=== PATIENT | male | born 1950 | race Caucasian/White ===

== ENCOUNTER 2020-10-05 19:53 | Inpatient (IN) | payer MEDICARE, SELFPAY ==
--- NOTE | 2020-10-05 20:04 | ED_ITS ---
HPI - Altered Mental Status General Chief Complaint: Altered Mental Status Stated Complaint: FOUND ON FLOOR,CONFUSED,UNK IF FALL Time Seen by Provider: 10/05/20 20:04 Source: patient and EMS Mode of arrival: EMS Limitations: no limitations History of Present Illness HPI narrative: Patient alcoholic drinks every day last drink was yesterday brought by ambulance, neighbor has heard him falling at 05:30 in the morning when he entered to his house tonight found him on the floor unable to get up covered in feces and confused. Patient is shaky trembling speaking softly in unkept condition not sure whether he hit his head to the ground Related Data Allergies Allergy/AdvReac Type Severity Reaction Status Date / Time penicillin V Allergy Unknown Verified 11/28/14 00:00 Penicillins [PENICILLINS] Allergy Unknown UNKOWN Unverified 07/09/20 15:15 Review of Systems Review of Systems: REVIEW OF SYSTEMS: Pertinent positives and negatives are stated above in the history. GEN: no fevers, chills, fatigue++ HEENT: no nasal congestion, sore throat, ear pain NEURO: no headache, dizziness, focal weakness PULM: no cough, shortness of breath CV: no chest pain, palpitations, LE edema ABD: no abdominal pain, nausea, vomiting, diarrhea : no dysuria, urgency, frequency SKIN: Bruising+ Patient confused limited ROS Neurologic: Reports confusion Psychiatric: Psychiatric: Reports confusion PMFSH Past Medical History Medical History Alcohol abuse Social History Social History Advance Directives: No Advance Directives Information Provided: Yes Physical Exam Vital Signs: Vital Signs: Last Vital Signs Temp 99.7 F 10/05/20 20:06 Pulse 98 10/05/20 23:18 Resp 20 10/05/20 23:18 BP 130/70 10/05/20 23:18 Pulse Ox 98 10/05/20 21:12 Body Mass Index 22.7 Const: General: alert, anxious, confusion, ill appearing, lethargic and poor hygiene Nutritional Appearance: malnourished Orientation/consciousness: oriented to person, oriented to place, confusion and lethargic Limitations: altered mental status HENMT: Head: Yes normal to inspection Ears: hearing grossly normal bilaterally General nose exam: Normal external nose present Mouth: Abnormal oral and palatal mucosa present (Dry oral mucosa) Eyes: General: appearance normal, both eyes and all related structures Eyelids: Yes eyelids normal Conjunctivae: conjunctivae normal Sclerae: sclerae normal Neck: Neck: Yes normal visual inspection, Yes full ROM, Yes no meningeal signs, Yes trachea midline, Yes lymphadenopathy, No midline deformity and Yes no JVD Chest: Other: Different age bruising on the back of the chest and extremities Chest palpation & inspection: normal palpation of entire chest wall Resp: Effort & Inspection: normal respiratory effort Auscultation: no crackles, no rales and no rhonchi Cardio: Jugular venous distension: no JVD Rate: regular rate Rhythm: regular rhythm Heart sounds: S1 normal heart sound present and S2 normal heart sound present GI: Inspection: Yes normal to inspection Palpation (GI): Soft to palpation and nontender : General: Yes no CVA tenderness Back/Spine/Pelvis: Back: no CVA tenderness Thoracic/Lumbar Spine: thoracic and lumbar spine normal to inspection Skin: Other: Dry skin bruising and abrasions of different ages all over Neuro: General: oriented to person, oriented to place, moves all extremities, no meningeal signs, no focal motor deficits, CN's II-XI intact bilaterally and confusion Extrem: General: Yes normal to inspection and Yes full ROM MDM - Altered Mental Status MDM Narrative Medical decision making narrative: Patient with alcohol withdrawal with recent fall workup showed that patient has UTI also not septic also slight in rhabdomyolysis, Patient received IV fluids and IV Ativan will admit patient for IV hydration and IV antibiotics and start on phenobarb protocol for alcohol withdrawal also patient's magnesium was 1.2 received magnesium IV patient white counts are 7.3 is normal with thrombocytopenia 74,000 with lactic acidosis of 4.7 patient is not from sepsis from dehydration and rhabdomyolysis and alcohol use patient abdomen is soft no signs of any acute findings. Patient's urine is slightly infected with nitrite positive and WBC clumps will give IV antibiotics Rocephin patient received more than 30 cc/kilogram IV fluids vitals are stable started on Ativan for withdrawal and place him on phenobarb protocol Medical Records Attestation: I reviewed the patient's medical records. Lab Data Attestation: I reviewed the patient's lab results. Result diagrams: 10/05/20 21:00 10/05/20 21:00 Labs: Lab Results 10/05/20 10/05/20 10/05/20 Range/Units 20:23 21:00 21:00 WBC 7.3 (4.8-10.8) X10*3/uL RBC 3.99 L (4.60-5.80) X10*6/uL Hgb 14.2 (14.0-18.0) g/dl Hct 41.9 L (42-52) % MCV 105.0 H (80-98) fL MCH 35.6 H (27.0-33.0) pg MCHC 33.9 (31.0-36.0) g/dl RDW 14.5 (11.0-16.0) % Plt Count 74 L (160-400) X10*3/uL MPV 10.8 (9.4-12.4) fL Immature Gran % (Auto) 0.4 (0.0-0.4) % Neut % (Auto) 74.8 H (45-73) % Lymph % (Auto) 16.4 L (20-40) % Dale % (Auto) 8.3 (2-11) % Eos % (Auto) 0.0 (0-4) % Baso % (Auto) 0.1 (0-2) % Lymph # (Auto) 1.2 (1.2-4.9) X10*3/uL Dale # (Auto) 0.6 (0.1-1.2) X10*3/uL Eos # (Auto) 0.0 (0.0-0.4) X10*3/uL Baso # (Auto) 0.0 (0.0-0.2) X10*3/uL Abs Immat Gran (auto) 0.03 (0.00-0.03) X10*3/uL Absolute Neuts (auto) 5.4 (2.0-8.3) X10*3/uL Absolute Nucleated RBC 0.000 (0.0-0.012) X10*3/uL Nucleated RBC % (auto) 0.0 (0.0-0.2) /100WBC PT (10.8-13.0) SEC INR (0.9-1.1) APTT (24.1-38.0) SEC Sodium (135-145) mmol/L Potassium (3.3-5.1) mmol/l Chloride (96-108) mmol/L Carbon Dioxide (22-29) mmol/L Anion Gap (12-20) BUN (9-16) mg/dL Creatinine (0.5-1.4) mg/dL Estim Creat Clear Calc Estimated GFR POC Glucose 123 H (60-115) mg/dL Random Glucose (60-115) mg/dL Lactic Acid (0.5-2.0) mmol/L Calcium (8.4-10.2) mg/dL Magnesium (1.6-2.6) mg/dL Total Bilirubin (0.0-1.0) mg/dL Direct Bilirubin (0.0-0.5) mg/dL AST (5-37) U/L ALT (0-40) U/L Alkaline Phosphatase (39-117) U/L Total Creatine Kinase 1251 H (38-174) U/L Troponin I High Sens (<3.5-35.0) ng/L Total Protein (6.5-8.0) g/dL Albumin (3.5-5.0) g/dL Lipase (8-78) U/L Urine Color Urine Appearance Urine pH (5.0-8.0) Ur Specific [place] (1.005-1.025) Urine Protein (NEG-TRACE) MG/DL Urine Glucose (UA) (NEG) MG/DL Urine Ketones (NEG) MG/DL Urine Blood (NEG) Urine Nitrite (NEG) Ur Leukocyte Esterase (NEG) Urine RBC (0) /HPF Urine WBC (0-4) /HPF Urine WBC Clumps Ur Squamous Epith Cells /LPF Urine Bacteria /LPF Hyaline Casts /LPF Urine Mucus /LPF Ethyl Alcohol mg/dL Coronavirus (PCR) (Negative) Influenza Type A (PCR) (Negative) Influenza Type B (PCR) (Negative) RSV RNA Qual (PCR) (Negative) 10/05/20 10/05/20 10/05/20 Range/Units 21:00 21:00 21:00 WBC (4.8-10.8) X10*3/uL RBC (4.60-5.80) X10*6/uL Hgb (14.0-18.0) g/dl Hct (42-52) % MCV (80-98) fL MCH (27.0-33.0) pg MCHC (31.0-36.0) g/dl RDW (11.0-16.0) % Plt Count (160-400) X10*3/uL MPV (9.4-12.4) fL Immature Gran % (Auto) (0.0-0.4) % Neut % (Auto) (45-73) % Lymph % (Auto) (20-40) % Dale % (Auto) (2-11) % Eos % (Auto) (0-4) % Baso % (Auto) (0-2) % Lymph # (Auto) (1.2-4.9) X10*3/uL Dale # (Auto) (0.1-1.2) X10*3/uL Eos # (Auto) (0.0-0.4) X10*3/uL Baso # (Auto) (0.0-0.2) X10*3/uL Abs Immat Gran (auto) (0.00-0.03) X10*3/uL Absolute Neuts (auto) (2.0-8.3) X10*3/uL Absolute Nucleated RBC (0.0-0.012) X10*3/uL Nucleated RBC % (auto) (0.0-0.2) /100WBC PT 13.0 (10.8-13.0) SEC INR 1.1 (0.9-1.1) APTT 29.6 (24.1-38.0) SEC Sodium 148 H (135-145) mmol/L Potassium 3.5 (3.3-5.1) mmol/l Chloride 107 (96-108) mmol/L Carbon Dioxide 23 (22-29) mmol/L Anion Gap 22 H (12-20) BUN 5 L (9-16) mg/dL Creatinine 0.83 (0.5-1.4) mg/dL Estim Creat Clear Calc 85.4 Estimated GFR > 60 POC Glucose (60-115) mg/dL Random Glucose 127 H (60-115) mg/dL Lactic Acid (0.5-2.0) mmol/L Calcium 8.0 L (8.4-10.2) mg/dL Magnesium (1.6-2.6) mg/dL Total Bilirubin 2.9 H (0.0-1.0) mg/dL Direct Bilirubin 1.6 H (0.0-0.5) mg/dL AST 96 H (5-37) U/L ALT 30 (0-40) U/L Alkaline Phosphatase 113 (39-117) U/L Total Creatine Kinase (38-174) U/L Troponin I High Sens 10.8 (<3.5-35.0) ng/L Total Protein 6.5 (6.5-8.0) g/dL Albumin 3.6 (3.5-5.0) g/dL Lipase (8-78) U/L Urine Color Urine Appearance Urine pH (5.0-8.0) Ur Specific [place] (1.005-1.025) Urine Protein (NEG-TRACE) MG/DL Urine Glucose (UA) (NEG) MG/DL Urine Ketones (NEG) MG/DL Urine Blood (NEG) Urine Nitrite (NEG) Ur Leukocyte Esterase (NEG) Urine RBC (0) /HPF Urine WBC (0-4) /HPF Urine WBC Clumps Ur Squamous Epith Cells /LPF Urine Bacteria /LPF Hyaline Casts /LPF Urine Mucus /LPF Ethyl Alcohol mg/dL Coronavirus (PCR) (Negative) Influenza Type A (PCR) (Negative) Influenza Type B (PCR) (Negative) RSV RNA Qual (PCR) (Negative) 10/05/20 10/05/20 10/05/20 Range/Units 21:00 21:00 21:00 WBC (4.8-10.8) X10*3/uL RBC (4.60-5.80) X10*6/uL Hgb (14.0-18.0) g/dl Hct (42-52) % MCV (80-98) fL MCH (27.0-33.0) pg MCHC (31.0-36.0) g/dl RDW (11.0-16.0) % Plt Count (160-400) X10*3/uL MPV (9.4-12.4) fL Immature Gran % (Auto) (0.0-0.4) % Neut % (Auto) (45-73) % Lymph % (Auto) (20-40) % Dale % (Auto) (2-11) % Eos % (Auto) (0-4) % Baso % (Auto) (0-2) % Lymph # (Auto) (1.2-4.9) X10*3/uL Dale # (Auto) (0.1-1.2) X10*3/uL Eos # (Auto) (0.0-0.4) X10*3/uL Baso # (Auto) (0.0-0.2) X10*3/uL Abs Immat Gran (auto) (0.00-0.03) X10*3/uL Absolute Neuts (auto) (2.0-8.3) X10*3/uL Absolute Nucleated RBC (0.0-0.012) X10*3/uL Nucleated RBC % (auto) (0.0-0.2) /100WBC PT (10.8-13.0) SEC INR (0.9-1.1) APTT (24.1-38.0) SEC Sodium (135-145) mmol/L Potassium (3.3-5.1) mmol/l Chloride (96-108) mmol/L Carbon Dioxide (22-29) mmol/L Anion Gap (12-20) BUN (9-16) mg/dL Creatinine (0.5-1.4) mg/dL Estim Creat Clear Calc Estimated GFR POC Glucose (60-115) mg/dL Random Glucose (60-115) mg/dL Lactic Acid (0.5-2.0) mmol/L Calcium (8.4-10.2) mg/dL Magnesium (1.6-2.6) mg/dL Total Bilirubin (0.0-1.0) mg/dL Direct Bilirubin (0.0-0.5) mg/dL AST (5-37) U/L ALT (0-40) U/L Alkaline Phosphatase (39-117) U/L Total Creatine Kinase (38-174) U/L Troponin I High Sens (<3.5-35.0) ng/L Total Protein (6.5-8.0) g/dL Albumin (3.5-5.0) g/dL Lipase 7 L (8-78) U/L Urine Color Urine Appearance Urine pH (5.0-8.0) Ur Specific [place] (1.005-1.025) Urine Protein (NEG-TRACE) MG/DL Urine Glucose (UA) (NEG) MG/DL Urine Ketones (NEG) MG/DL Urine Blood (NEG) Urine Nitrite (NEG) Ur Leukocyte Esterase (NEG) Urine RBC (0) /HPF Urine WBC (0-4) /HPF Urine WBC Clumps Ur Squamous Epith Cells /LPF Urine Bacteria /LPF Hyaline Casts /LPF Urine Mucus /LPF Ethyl Alcohol < 10 mg/dL Coronavirus (PCR) NEGATIVE (Negative) Influenza Type A (PCR) NEGATIVE (Negative) Influenza Type B (PCR) NEGATIVE (Negative) RSV RNA Qual (PCR) NEGATIVE (Negative) 10/05/20 10/05/20 10/06/20 Range/Units 21:00 23:11 00:08 WBC (4.8-10.8) X10*3/uL RBC (4.60-5.80) X10*6/uL Hgb (14.0-18.0) g/dl Hct (42-52) % MCV (80-98) fL MCH (27.0-33.0) pg MCHC (31.0-36.0) g/dl RDW (11.0-16.0) % Plt Count (160-400) X10*3/uL MPV (9.4-12.4) fL Immature Gran % (Auto) (0.0-0.4) % Neut % (Auto) (45-73) % Lymph % (Auto) (20-40) % Dale % (Auto) (2-11) % Eos % (Auto) (0-4) % Baso % (Auto) (0-2) % Lymph # (Auto) (1.2-4.9) X10*3/uL Dale # (Auto) (0.1-1.2) X10*3/uL Eos # (Auto) (0.0-0.4) X10*3/uL Baso # (Auto) (0.0-0.2) X10*3/uL Abs Immat Gran (auto) (0.00-0.03) X10*3/uL Absolute Neuts (auto) (2.0-8.3) X10*3/uL Absolute Nucleated RBC (0.0-0.012) X10*3/uL Nucleated RBC % (auto) (0.0-0.2) /100WBC PT (10.8-13.0) SEC INR (0.9-1.1) APTT (24.1-38.0) SEC Sodium (135-145) mmol/L Potassium (3.3-5.1) mmol/l Chloride (96-108) mmol/L Carbon Dioxide (22-29) mmol/L Anion Gap (12-20) BUN (9-16) mg/dL Creatinine (0.5-1.4) mg/dL Estim Creat Clear Calc Estimated GFR POC Glucose (60-115) mg/dL Random Glucose (60-115) mg/dL Lactic Acid 4.7 H* (0.5-2.0) mmol/L Calcium (8.4-10.2) mg/dL Magnesium 1.2 L* (1.6-2.6) mg/dL Total Bilirubin (0.0-1.0) mg/dL Direct Bilirubin (0.0-0.5) mg/dL AST (5-37) U/L ALT (0-40) U/L Alkaline Phosphatase (39-117) U/L Total Creatine Kinase (38-174) U/L Troponin I High Sens (<3.5-35.0) ng/L Total Protein (6.5-8.0) g/dL Albumin (3.5-5.0) g/dL Lipase (8-78) U/L Urine Color DARK YELLOW Urine Appearance HAZY Urine pH 6.5 (5.0-8.0) Ur Specific [place] 1.025 (1.005-1.025) Urine Protein TRACE (NEG-TRACE) MG/DL Urine Glucose (UA) 100 H (NEG) MG/DL Urine Ketones 5 (NEG) MG/DL Urine Blood 3+ H (NEG) Urine Nitrite POS H (NEG) Ur Leukocyte Esterase NEG (NEG) Urine RBC 5-9 H (0) /HPF Urine WBC 10-14 H (0-4) /HPF Urine WBC Clumps NOTED Ur Squamous Epith Cells TRACE /LPF Urine Bacteria NONE /LPF Hyaline Casts 1-4 /LPF Urine Mucus 3+ /LPF Ethyl Alcohol mg/dL Coronavirus (PCR) (Negative) Influenza Type A (PCR) (Negative) Influenza Type B (PCR) (Negative) RSV RNA Qual (PCR) (Negative) ECG Data ECG #1: Interpretation: Normal sinus rhythm with heart rate [address]-T changes very poor baseline artifact. Intervals are normal impression no acute ischemia Critical Care Time Critical Care Time Critical Care Time: Yes Total Critical Care Time: 35 Attestation: Patient care Discharge Plan Discharge Clinical Impression: Alcohol withdrawal, Acute UTI, Status post fall, Rhabdomyolysis, Acidosis, lactic Patient Disposition: Admitted As Inpatient
--- NOTE | 2020-10-05 20:04 | CT_ITS ---
EXAM: Noncontrast CT scan of the head and cervical spine. INDICATION: Fall. Altered mental status. COMPARISON: None TECHNIQUE: Axial slices were obtained from skull base to vertex and displayed. This was followed by helical, multislice, multidetector axial images from the occiput to the upper thorax. Coronal and sagittal reformats of the cervical spine in addition to coronal reformats of the head were obtained at the technologist workstation. DLP: 1189 mGy-cm FINDINGS: HEAD: There is no evidence of acute intracranial hemorrhage or territorial infarction. No abnormal mass effect or midline shift is appreciated. Barry-white differentiation is well preserved. No extra-axial fluid collections. The ventricular system and cortical sulci are prominent, consistent with age-appropriate volume loss. There are areas of low density in the periventricular and subcortical white matter, most consistent with sequelae of microvascular ischemic change. The osseous structures and soft tissues are normal. There is mild calcifications of the cavernous internal carotid arteries. Prominent mucosal thickening of the right maxillary sinus. Other visualized paranasal sinuses are well aerated. SPINE: The cervical spine is visualized in its entirety. Alignment is within normal limits. Normal C1/C2 articulation. Vertebral body heights and disc spaces are relatively well-maintained diffusely. Visualized lung apices demonstrate mild biapical scarring and mild emphysematous changes. There is a 4 mm pulmonary nodule within the medial right lung apex. CT/CT cervical spine wo con IMPRESSION: 1. No acute intracranial pathology. 2. No fractures or dislocations of the cervical spine. 3. Mild sinus disease. 4. Mild scarring and emphysematous changes of the lung apices with a 4 mm pulmonary nodule within the medial right lung apex. This CT examination was performed using dose optimization techniques as appropriate, variously including the following: *Automated exposure control *Adjustment of mA and/or kV according to patient size (this includes techniques or standardized protocols for targeted exams where dose is matched to indication/reason for exam; i.e. extremities or head) *Use of iterative reconstruction technique
--- NOTE | 2020-10-05 20:05 | ECG_ITS ---
Test Reason : AMS Blood Pressure : / mmHG Vent. Rate : 077 BPM Atrial Rate : 078 BPM P-R Int : 000 ms QRS Dur : 074 ms QT Int : 436 ms P-R-T Axes : 000 062 073 degrees QTc Int : 493 ms Poor data quality Normal sinus rhythm Nonspecific ST-T changes. Prolonged QT Abnormal ECG When compared with ECG of 13-JUN-2020 15:57, QT has lengthened Referred By: Geovanni Toure Electronically Signed By:Gigi Barakat
--- NOTE | 2020-10-05 20:05 | XR_ITS ---
EXAMINATION: XR CHEST CLINICAL INFORMATION: Altered mental status COMPARISON: Chest x-ray 06/13/2020 TECHNIQUE: Frontal view of the chest was obtained. FINDINGS: Cardiac silhouette is normal in size. Lungs are well aerated. There is no lobar consolidation. No pleural effusion or pneumothorax. No gross osseous abnormality. XR/XR chest 1V IMPRESSION: Stable examination demonstrating no acute pulmonary pathology.
[2020-10-05 20:06] VITALS: BP 114/70; BP 128/92; PULSE 84; PULSE 92; RESP 16; TEMP 37.6; BMI 22.7
--- NOTE | 2020-10-05 20:19 | PC.NURSE ---
MD at bedside for primary eval. XRay at bedside.
--- NOTE | 2020-10-05 20:25 | PC.NURSE ---
engineering technology instructor at bedside for EKG and labs.
[2020-10-05 20:27] LABS: Glucose, Whole Blood 123 mg/dL (60-115)
--- NOTE | 2020-10-05 20:39 | PC.NURSE ---
Off to CT on hospital bed.
--- NOTE | 2020-10-05 20:49 | PC.NURSE ---
Pt returns from CT on hospital bed without incident. maintenance technician at bedside to obtain labs.
[2020-10-05] MEDS: 0.9 % Sodium Chloride 1,000 ML 999 ML IVCONT (21:04)
[2020-10-05 21:06] LABS: MANUAL DIFF FLAG NO
[2020-10-05 21:09] LABS: Basophils Percent Auto 0.1 % (0-2); Hematocrit 41.9 % (42-52); Hemoglobin 14.2 g/dl (14.0-18.0); Imm Gran Abs Auto 0.03 X10*3/uL (0.00-0.03); Imm Gran Pct Auto 0.4 % (0.0-0.4); Lymphocytes Absolute Auto 1.2 X10*3/uL (1.2-4.9); Lymphocytes Percent Auto 16.4 % (20-40); Mean Corpuscular HGB Conc 33.9 g/dl (31.0-36.0); Mean Corpuscular Hemoglobin 35.6 pg (27.0-33.0); Mean Platelet Volume 10.8 fL (9.4-12.4); Monocytes Absolute Auto 0.6 X10*3/uL (0.1-1.2); Monocytes Percent Auto 8.3 % (2-11); Neutrophils Absolute Auto 5.4 X10*3/uL (2.0-8.3); Neutrophils Percent Auto 74.8 % (45-73); Red Blood Count 3.99 X10*6/uL (4.60-5.80); Red Cell Distribution Width 14.5 % (11.0-16.0); White Blood Count 7.3 X10*3/uL (4.8-10.8)
[2020-10-05 21:12] VITALS: BP 123/84; PULSE 85; RESP 16; O2SAT 98
[2020-10-05 21:18] LABS: INTERNATIONAL NORM RATIO 1.1 (0.9-1.1)
[2020-10-05 21:21] LABS: Partial Thromboplastin Time 29.6 SEC (24.1-38.0)
[2020-10-05 21:25] LABS: Platelet Count 74 X10*3/uL (160-400)
[2020-10-05 21:34] LABS: Ethanol < 10 mg/dL
[2020-10-05 21:39] LABS: Lipase 7 U/L (8-78)
[2020-10-05 21:43] LABS: Troponin-I High Sensitivity 10.8 ng/L (<3.5-35.0)
[2020-10-05 21:44] LABS: Alanine Aminotransferase 30 U/L (0-40); Albumin Level 3.6 g/dL (3.5-5.0); Alkaline Phosphatase 113 U/L (39-117); Anion Gap 22 (12-20); Aspartate Amino Transferase 96 U/L (5-37); Bilirubin Direct 1.6 mg/dL (0.0-0.5); Bilirubin Total 2.9 mg/dL (0.0-1.0); Blood Urea Nitrogen 5 mg/dL (9-16); Carbon Dioxide 23 mmol/L (22-29); Chloride 107 mmol/L (96-108); Creatinine Clr Calc Pharmacy 85.4; Estimated Glomerular Filt Rate > 60; Glucose Random 127 mg/dL (60-115); Potassium 3.5 mmol/l (3.3-5.1); Sodium 148 mmol/L (135-145); Total Protein 6.5 g/dL (6.5-8.0)
[2020-10-05 21:50] LABS: Influenza A PCR NEGATIVE (Negative); Influenza B PCR NEGATIVE (Negative); Magnesium 1.2 mg/dL (1.6-2.6); Resp Syncy Virus RNA Qual PCR NEGATIVE (Negative); SARS COV2 PCR INHOUSE NEGATIVE (Negative)
[2020-10-05] MEDS: Magnesium Sulfate/H2O 2 GM/50 ML PIGGYBACK IV (22:01)
[2020-10-05] MEDS: LORazepam 2 MG/ML VIAL IVPUSH ×2 (22:01→23:23)
--- NOTE | 2020-10-05 22:06 | PC.NURSE ---
Pt medicated per EMAR, pharmacy contacted for banana bag.
--- NOTE | 2020-10-05 23:07 | PC.NURSE ---
Pt constantly expressing the need to urinate, minimal urine noted in urinal. Bladder scan showing <8 ml of urine in bladder/ Pt straight cathed to obtain urine sample. Urine sample sent to lab. Pt tremulous and confused, tolerating the straight cath poorly, pt uncooperative, grabbing at nurses. Continue to monitor.
[2020-10-05 23:17] LABS: Glucose Urine UA 100 MG/DL (NEG); Leukocyte Esterase Urine NEG (NEG); Nitrite Urine POS (NEG); PH 6.5 (5.0-8.0); Specific Gravity - Urine 1.025 (1.005-1.025); Urine Blood 3+ (NEG); Urine Ketones 5 MG/DL (NEG); Urine Protein TRACE MG/DL (NEG-TRACE)
[2020-10-05 23:18] VITALS: BP 130/70; PULSE 98; RESP 20
[2020-10-05 23:19] LABS: Appearance Urine HAZY; Color Urine DARK YELLOW
--- NOTE | 2020-10-05 23:23 | PC.NURSE ---
MD consulted for a second dose of Ativan, pt medicated with Ativan per DEC. Pt trying to pull out IV and get OOB, seizure pads applied to bed, pt repositioned into POC. VSS. Continue to monitor.
[2020-10-05 23:35] LABS: Mucus Urine 3+ /LPF; Squamous Epithelial Cell Urine TRACE /LPF; WBC Clumps Urine NOTED
[2020-10-06] MEDS: cefTRIAXone sodium 1 GM in 0.9 % Sodium Chloride 50 ML IV ×2 (00:24→05:49)
--- NOTE | 2020-10-06 00:27 | PC.NURSE ---
BCX and lactic obtained per MD order. Rocephin hung per DEC. Pt resting in bed at this time, remains agitated, unable to follow commands, sitter at bedside. VSS. Continue to monitor.
--- NOTE | 2020-10-06 00:33 | PC.NURSE ---
Hospitalist at bedside, plan for Phenobarb protocol.
--- NOTE | 2020-10-06 00:54 | PM.IMHP ---
History of Present Illness Date of Service: 10/06/20 Chief Complaint: Alcohol intoxication 70 y/o male with PMHx of alcohol abuse who presented from home s/p fall. Per history provided by EMS (as patient is unable to provide with any significant hx), Per patient's neighbor, he was found on the floor around 5:30 am this morning, confused and covered in feces. Patient usually drinks everyday, last alcoholic drink is knonw to be yesterday. No other hx is able to be obtained from patient at present given degree of confusion. On presentation to the ED patient is found to be hemodynaically stable, Hgb stable, no leukocytosis, Mg of 1.2, Na of 148, CPK of 1251, UA positive for UTI. CT head negative for any acute intracranial pathology. Patient was given Ativan 4 mg IV push and one dose of Rocephin per ED attending. Decision for admission given. Patient seen and examined at the bedside, laying down in bed in no acute distress, confused. ROS unable to be obtained at present. Physical exam positive for confusion. PMHX: Alcohol abuse PSx: none Toxic habits: Alcohol abuse, no hx of smoking or IVDA Review of Systems Review of Systems: Yes Other (unable to be obtained ) Neurologic: Reports confusion Psychiatric: Psychiatric: Reports confusion [facility] Medical History Alcohol abuse Functional capacity: independent ambulation Social History Advance Directives: No Advance Directives Information Provided: Yes Meds Allergies Allergy/AdvReac Type Severity Reaction Status Date / Time penicillin V Allergy Unknown Verified 11/28/14 00:00 Penicillins [PENICILLINS] Allergy Unknown UNKOWN Unverified 07/09/20 15:15 Physical Exam Vital Signs and Narrative: Vital Signs: Last Vital Signs Temp 99.7 F 10/05/20 20:06 Pulse 98 10/05/20 23:18 Resp 20 10/05/20 23:18 BP 130/70 10/05/20 23:18 Pulse Ox 98 10/05/20 21:12 Body Mass Index 22.7 Const: General: confusion Orientation/consciousness: confusion HENMT: Head: Yes normal to inspection Eyes: General: appearance normal, both eyes and all related structures Neck: Yes normal visual inspection Chest: Chest palpation & inspection: normal inspection of the chest Resp: Effort & Inspection: normal respiratory effort Cardio: Jugular venous distension: no JVD Rate: regular rate Rhythm: regular rhythm Heart sounds: S1 normal heart sound present and S2 normal heart sound present GI: Inspection: Yes normal to inspection Skin: General skin exam: no rashes or lesions noted Neuro: General: confusion Results Labs CBC and Chem 7: 10/05/20 21:00 10/05/20 21:00 Labs: Laboratory Results - last 24 hr 10/05/20 10/05/20 10/05/20 20:23 21:00 21:00 MCV 105.0 H MCH 35.6 H MCHC 33.9 RDW 14.5 Plt Count 74 L MPV 10.8 Immature Gran % (Auto) 0.4 Neut % (Auto) 74.8 H Lymph % (Auto) 16.4 L Mcleod % (Auto) 8.3 Eos % (Auto) 0.0 Baso % (Auto) 0.1 Lymph # (Auto) 1.2 Mcleod # (Auto) 0.6 Eos # (Auto) 0.0 Baso # (Auto) 0.0 Abs Immat Gran (auto) 0.03 Absolute Neuts (auto) 5.4 Absolute Nucleated RBC 0.000 Nucleated RBC % (auto) 0.0 PT INR APTT Anion Gap Estim Creat Clear Calc Estimated GFR POC Glucose 123 H Random Glucose Calcium Magnesium Total Bilirubin Direct Bilirubin AST ALT Alkaline Phosphatase Total Creatine Kinase 1251 H Troponin I High Sens Total Protein Albumin Lipase Urine Color Urine Appearance Urine pH Ur Specific Fowler Urine Protein Urine Glucose (UA) Urine Ketones Urine Blood Urine Nitrite Ur Leukocyte Esterase Urine RBC Urine WBC Urine WBC Clumps Ur Squamous Epith Cells Urine Bacteria Hyaline Casts Urine Mucus Ethyl Alcohol Coronavirus (PCR) Influenza Type A (PCR) Influenza Type B (PCR) RSV RNA Qual (PCR) 10/05/20 10/05/20 10/05/20 21:00 21:00 21:00 MCV MCH MCHC RDW Plt Count MPV Immature Gran % (Auto) Neut % (Auto) Lymph % (Auto) Mcleod % (Auto) Eos % (Auto) Baso % (Auto) Lymph # (Auto) Mcleod # (Auto) Eos # (Auto) Baso # (Auto) Abs Immat Gran (auto) Absolute Neuts (auto) Absolute Nucleated RBC Nucleated RBC % (auto) PT 13.0 INR 1.1 APTT 29.6 Anion Gap 22 H Estim Creat Clear Calc 85.4 Estimated GFR > 60 POC Glucose Random Glucose 127 H Calcium 8.0 L Magnesium Total Bilirubin 2.9 H Direct Bilirubin 1.6 H AST 96 H ALT 30 Alkaline Phosphatase 113 Total Creatine Kinase Troponin I High Sens 10.8 Total Protein 6.5 Albumin 3.6 Lipase Urine Color Urine Appearance Urine pH Ur Specific Fowler Urine Protein Urine Glucose (UA) Urine Ketones Urine Blood Urine Nitrite Ur Leukocyte Esterase Urine RBC Urine WBC Urine WBC Clumps Ur Squamous Epith Cells Urine Bacteria Hyaline Casts Urine Mucus Ethyl Alcohol Coronavirus (PCR) Influenza Type A (PCR) Influenza Type B (PCR) RSV RNA Qual (PCR) 10/05/20 10/05/20 10/05/20 21:00 21:00 21:00 MCV MCH MCHC RDW Plt Count MPV Immature Gran % (Auto) Neut % (Auto) Lymph % (Auto) Mcleod % (Auto) Eos % (Auto) Baso % (Auto) Lymph # (Auto) Mcleod # (Auto) Eos # (Auto) Baso # (Auto) Abs Immat Gran (auto) Absolute Neuts (auto) Absolute Nucleated RBC Nucleated RBC % (auto) PT INR APTT Anion Gap Estim Creat Clear Calc Estimated GFR POC Glucose Random Glucose Calcium Magnesium Total Bilirubin Direct Bilirubin AST ALT Alkaline Phosphatase Total Creatine Kinase Troponin I High Sens Total Protein Albumin Lipase 7 L Urine Color Urine Appearance Urine pH Ur Specific Fowler Urine Protein Urine Glucose (UA) Urine Ketones Urine Blood Urine Nitrite Ur Leukocyte Esterase Urine RBC Urine WBC Urine WBC Clumps Ur Squamous Epith Cells Urine Bacteria Hyaline Casts Urine Mucus Ethyl Alcohol < 10 Coronavirus (PCR) NEGATIVE Influenza Type A (PCR) NEGATIVE Influenza Type B (PCR) NEGATIVE RSV RNA Qual (PCR) NEGATIVE 10/05/20 10/05/20 21:00 23:11 MCV MCH MCHC RDW Plt Count MPV Immature Gran % (Auto) Neut % (Auto) Lymph % (Auto) Mcleod % (Auto) Eos % (Auto) Baso % (Auto) Lymph # (Auto) Mcleod # (Auto) Eos # (Auto) Baso # (Auto) Abs Immat Gran (auto) Absolute Neuts (auto) Absolute Nucleated RBC Nucleated RBC % (auto) PT INR APTT Anion Gap Estim Creat Clear Calc Estimated GFR POC Glucose Random Glucose Calcium Magnesium 1.2 L* Total Bilirubin Direct Bilirubin AST ALT Alkaline Phosphatase Total Creatine Kinase Troponin I High Sens Total Protein Albumin Lipase Urine Color DARK YELLOW Urine Appearance HAZY Urine pH 6.5 Ur Specific Fowler 1.025 Urine Protein TRACE Urine Glucose (UA) 100 H Urine Ketones 5 Urine Blood 3+ H Urine Nitrite POS H Ur Leukocyte Esterase NEG Urine RBC 5-9 H Urine WBC 10-14 H Urine WBC Clumps NOTED Ur Squamous Epith Cells TRACE Urine Bacteria NONE Hyaline Casts 1-4 Urine Mucus 3+ Ethyl Alcohol Coronavirus (PCR) Influenza Type A (PCR) Influenza Type B (PCR) RSV RNA Qual (PCR) Imaging Radiologist's Impressions: Impressions Cervical Spine CT 10/05/20 20:04 IMPRESSION: 1. No acute intracranial pathology. 2. No fractures or dislocations of the cervical spine. 3. Mild sinus disease. 4. Mild scarring and emphysematous changes of the lung apices with a 4 mm pulmonary nodule within the medial right lung apex. This CT examination was performed using dose optimization techniques as appropriate, variously including the following: *Automated exposure control *Adjustment of mA and/or kV according to patient size (this includes techniques or standardized protocols for targeted exams where dose is matched to indication/reason for exam; i.e. extremities or head) *Use of iterative reconstruction technique Chest X-Ray 10/05/20 20:05 IMPRESSION: Stable examination demonstrating no acute pulmonary pathology. Head CT 10/05/20 20:06 IMPRESSION: 1. No acute intracranial pathology. 2. No fractures or dislocations of the cervical spine. 3. Mild sinus disease. 4. Mild scarring and emphysematous changes of the lung apices with a 4 mm pulmonary nodule within the medial right lung apex. This CT examination was performed using dose optimization techniques as appropriate, variously including the following: *Automated exposure control *Adjustment of mA and/or kV according to patient size (this includes techniques or standardized protocols for targeted exams where dose is matched to indication/reason for exam; i.e. extremities or head) *Use of iterative reconstruction technique Assessment and Plan (1) Alcohol withdrawal: Qualifiers: Complication of substance-induced condition: uncomplicated Qualified Code(s): F10.230 - Alcohol dependence with withdrawal, uncomplicated Status: Acute Start with phenobarbital per protocol now S/p 2g of Mg per ED. Monitor electrolytes closely Fall precautions Continue with IV hydration follow up utox Detox to be discussed once patient is medically stable (2) Acute UTI: Status: Acute Continue with Rocephin for gram neg coverage Follow up Bcx and Ucx (3) Rhabdomyolysis: Qualifiers: Rhabdomyolysis type: non-traumatic Qualified Code(s): M62.82 - Rhabdomyolysis Status: Acute IV hydration as ordered (4) Hypernatremia: Status: Acute likely secondary to dehydration Continue with IV hydration and monitor electrolytes closely
--- NOTE | 2020-10-06 00:57 | PC.NURSE ---
This RN discussing repeat dose of Ativan with MD as pheno protocol as not gone into effect. Per MD plan for IV Ativan. Awaiting order. Pt remains uncooperative at this time, pulling his clothes and tele off. VSS. Continue to monitor.
[2020-10-06 01:03] LABS: Lactic Acid 4.7 mmol/L (0.5-2.0)
[2020-10-06] MEDS: LORazepam 2 MG/ML VIAL IVPUSH (01:03)
[2020-10-06] MEDS: Heparin Sodium,Porcine 5,000 UNIT/ML VIAL 5000 UNIT SUBCUT (01:04)
[2020-10-06] MEDS: 0.9 % Sodium Chloride 1,000 ML 999 ML IVCONT (01:35)
[2020-10-06] MEDS: PHENobarbitaL sodium 130 MG/ML VIAL 452 MG IM (01:36)
--- NOTE | 2020-10-06 01:47 | PC.NURSE ---
Pt agitated, removing IV to LAC. Access reestablished to LAC, IVF running. Pt medicated with initial dose of phenobarb. VSS. Preparing for transport to floor.
[2020-10-06 01:48] VITALS: BP 121/67; PULSE 95; RESP 16; TEMP 36.9
--- NOTE | 2020-10-06 01:49 | PC.NURSE ---
Unable to complete med rec due to AMS and DTs.
[2020-10-06 02:29] LABS: Reflex Lactate? Lactic Acid Added
[2020-10-06] MEDS: 0.9 % Sodium Chloride 1,000 ML 125 ML IVCONT ×2 (03:01→05:50)
[2020-10-06 03:13] LABS: ~Lactic Acid-LAB USE ONLY 2.2 mmol/L (0.5-2.0)
[2020-10-06 04:06] VITALS: BP 148/82
[2020-10-06] MEDS: PHENobarbitaL sodium 130 MG/ML VIAL 339 MG IM ×2 (04:38→07:11)
[2020-10-06] MEDS: diphenhydrAMINE HCL 50 MG/ML VIAL 25 MG IM (04:44)
[2020-10-06 04:51] LABS: Reflex Lactate? 2 Y
[2020-10-06 06:17] LABS: MANUAL DIFF FLAG NO
[2020-10-06 06:20] LABS: Basophils Percent Auto 0.2 % (0-2); Hematocrit 37.4 % (42-52); Hemoglobin 12.5 g/dl (14.0-18.0); Imm Gran Abs Auto 0.02 X10*3/uL (0.00-0.03); Imm Gran Pct Auto 0.4 % (0.0-0.4); Lymphocytes Absolute Auto 1.5 X10*3/uL (1.2-4.9); Lymphocytes Percent Auto 31.9 % (20-40); Mean Corpuscular HGB Conc 33.4 g/dl (31.0-36.0); Mean Corpuscular Hemoglobin 35.5 pg (27.0-33.0); Mean Corpuscular Volume 106.3 fL (80-98); Mean Platelet Volume 11.2 fL (9.4-12.4); Monocytes Absolute Auto 0.5 X10*3/uL (0.1-1.2); Monocytes Percent Auto 10.8 % (2-11); Neutrophils Absolute Auto 2.6 X10*3/uL (2.0-8.3); Neutrophils Percent Auto 56.7 % (45-73); Red Blood Count 3.52 X10*6/uL (4.60-5.80); Red Cell Distribution Width 14.6 % (11.0-16.0); White Blood Count 4.5 X10*3/uL (4.8-10.8)
[2020-10-06 06:24] LABS: ~Lactic Acid-LAB USE ONLY 2.2 mmol/L (0.5-2.0)
[2020-10-06 06:37] LABS: Platelet Count 42 X10*3/uL (160-400)
[2020-10-06 06:51] LABS: Anion Gap 14 (12-20); Blood Urea Nitrogen 5 mg/dL (9-16); Calcium 6.8 mg/dL (8.4-10.2); Carbon Dioxide 21 mmol/L (22-29); Chloride 113 mmol/L (96-108); Creatinine Clr Calc Pharmacy 102.7; Estimated Glomerular Filt Rate > 60; Glucose Random 93 mg/dL (60-115); Magnesium 1.6 mg/dL (1.6-2.6); Potassium 3.3 mmol/l (3.3-5.1); Sodium 145 mmol/L (135-145)
[2020-10-06 07:10] VITALS: BP 152/85; PULSE 83; RESP 20; TEMP 36.6; O2SAT 100
[2020-10-06 08:14] LABS: Glucose, Whole Blood 123 mg/dL (60-115)
--- NOTE | 2020-10-06 08:41 | P.CDIC_ITS ---
CDI Concurrent Query Service Date: 10/06/20 Documentation Clarification: Please clarify if you are treating a proba ble/suspected/likely or confirmed: Specifics: Malnutrition, protein calorie, mild, moderate or severe Please specify if known or other Unclear at this time Provider Response: Other Other Diagnosis: Unclear at this time PLEASE DO NOT DELETE/MODIFY EXISTING CONTENT Additional information is needed in order to code to the highest accuracy and appropriate Severity of Illness (SOI). Please clarify the information noted below in your progress notes and discharge summary. Risk Factors/Clinical Indicators/Treatments ED: Assessment - ill appearing, lethargic, falling, shaky confused, malnourished, poor hygiene, rhabdo, UTI. Alcohol withdrawal. CDS: Maggi Alvarez CCS, CDIS Contact Number: [phone] Please Review the information above and exercise your independent professional judgment in responding to the query. If you concur, pleas document in the PROGRESS NOTES and DISCHARGE SUMMARY. If you do not agree with the query, please document in the query above. THIS QUERY IS PART OF THE PERMANENT MEDICAL RECORD
--- NOTE | 2020-10-06 09:07 | MHC.CM.PN ---
pt lives alone in home. he has no contacts or hcp listed in emr. pt is currently c AMS, if pt clears he would benefit from a cares team consult. there is a strong likelihood pt will need str at dc , this will be confirmed by PT eval prior to dc. dc plan is unclear at this time but will likely be to str. cm to cont. to follow.
--- NOTE | 2020-10-06 09:34 | HO.PM.IMPN ---
Subjective Subjective Date of Service: 10/06/20 Interval History: seen and examined this AM remains confused unable to ROS Physical Exam Vital Signs: Vital Signs: Last Vital Signs Temp 97.8 F 10/06/20 07:10 Pulse 83 10/06/20 07:10 Resp 20 10/06/20 07:10 BP 152/85 H 10/06/20 07:10 Pulse Ox 100 10/06/20 07:10 Body Mass Index 22.7 Const: Other: General - no distress Cardiovascular - regular rate and rhythm, S1-S2 Lungs - normal respiratory effort, clear to auscultation bilaterally, no wheezing Abdomen - soft, nontender, no rebound or guarding Extremities - no edema bilaterally Neuro - non-focal, disoriented Objective Data Current Medications Generic Name Dose Route Start Last Admin Trade Name Freq PRN Reason Stop Dose Admin Ceftriaxone Sodium 1 gm/ 50 mls @ 100 mls/hr 10/06/20 06:00 10/06/20 06:20 Sodium Chloride IV Infused Q24H [facility] Infusion Lactated Ringer's 1,000 mls @ 100 mls/hr 10/06/20 09:00 Lr IVCONT .Q10H [facility] Magnesium Oxide 400 mg 10/06/20 17:30 Magnesium Oxide 400 Mg Tablet PO BIDPC [facility] Medication 1 each 10/06/20 09:00 No Benzodiazepines MISCELLANE DAILY [facility] Phenobarbital 45 mg 10/06/20 21:00 Phenobarbital 15 Mg Tablet PO 10/08/20 09:01 BID [facility] Protocol Phenobarbital 15 mg 10/08/20 21:00 Phenobarbital 15 Mg Tablet PO 10/10/20 09:01 BID [facility] Protocol Phenobarbital 15 mg 10/11/20 09:00 Phenobarbital 15 Mg Tablet PO 10/12/20 09:01 DAILY [facility] Protocol Sodium Chloride 3 ml 10/06/20 08:00 10/06/20 07:12 0.9 % Sodium Chloride Flush 3 Ml Syringe IVFLUSH Not Given QSHIFT [facility] Labs CBC & Chem 7: 10/06/20 06:02 10/06/20 06:02 Assessment and Plan (1) Rhabdomyolysis: Status: Acute Assessment and Plan: This is a 70 yo M with a PMH of alcohol abuse and dependence who is admitted for: 1. Acute Encephalopathy likely related to alcohol check ammonia 2. Alcohol abuse and dependence continue phenobarb per protocol monitor lytes 3. HypoMg repleted with IV, start PO repletement 4. Possible UTI empiric rocephin for now 5. Rhabdo change IVF to LR @ 100 cc/hr 6. Lactic Acidosis improved with IVF 7. Pulmonary nodule incidental finding outpatient f/u 8. Thrombocytopenia due to alcoholic liver disease stop heparin Full Code DVT pptx, mechanical due to significant thrombocytopenia
[2020-10-06] MEDS: Potassium Chloride ER 20 MEQ TAB.ER.PRT 40 MEQ PO (10:06)
[2020-10-06] MEDS: Lactated Ringers 1,000 ML 100 ML IVCONT (10:12)
[2020-10-06 10:21] LABS: Ammonia 40 umol/L (13-55)
[2020-10-06 10:32] LABS: Alanine Aminotransferase 31 U/L (0-40); Albumin Level 2.7 g/dL (3.5-5.0); Alkaline Phosphatase 84 U/L (39-117); Aspartate Amino Transferase 125 U/L (5-37); Bilirubin Direct 0.8 mg/dL (0.0-0.5); Bilirubin Total 1.5 mg/dL (0.0-1.0); Total Protein 5.2 g/dL (6.5-8.0)
[2020-10-06 11:39] VITALS: PULSE 89; RESP 20; TEMP 36.6; O2SAT 100
[2020-10-06 15:26] VITALS: BP 128/88; PULSE 95; RESP 17; TEMP 37.1; O2SAT 98
[2020-10-06 16:22] LABS: Amphetamine Screen Urine Not Detected (Not Detect); Barbiturates, Urine Not Detected (Not Detect); Benzodiazepines Screen Urine POSITIVE (Not Detect); Cannabinoid Screen Urine POSITIVE (Not Detect); Cocaine Screen Urine Not Detected (Not Detect); Opiate Screen Urine Not Detected (Not Detect); Phencyclidine Screen Urine Not Detected (Not Detect)
[2020-10-06] MEDS: Magnesium Oxide 400 MG TABLET PO (17:43)
[2020-10-06] MEDS: PHENobarbitaL 15 MG TABLET 45 MG PO (20:05)
[2020-10-06 23:46] VITALS: BP 155/100; PULSE 87; RESP 20; TEMP 37.2; O2SAT 98
[2020-10-07] MEDS: cefTRIAXone sodium 1 GM in 0.9 % Sodium Chloride 50 ML IV (06:23)
[2020-10-07] MEDS: Lactated Ringers 1,000 ML 100 ML IVCONT (06:30)
[2020-10-07 07:53] VITALS: BP 153/86; PULSE 83; RESP 18; TEMP 37; O2SAT 100
[2020-10-07] MEDS: Magnesium Oxide 400 MG TABLET PO (09:36)
[2020-10-07] MEDS: Thiamine HCL 100 MG TABLET PO (09:36)
[2020-10-07] MEDS: Folic Acid 1 MG TABLET PO (09:36)
[2020-10-07] MEDS: PHENobarbitaL 15 MG TABLET 45 MG PO ×2 (09:36→20:35)
[2020-10-07 09:48] LABS: Alanine Aminotransferase 35 U/L (0-40); Albumin Level 2.7 g/dL (3.5-5.0); Alkaline Phosphatase 75 U/L (39-117); Anion Gap 15 (12-20); Aspartate Amino Transferase 128 U/L (5-37); Bilirubin Direct 1.1 mg/dL (0.0-0.5); Bilirubin Total 1.9 mg/dL (0.0-1.0); Blood Urea Nitrogen 5 mg/dL (9-16); Calcium 6.7 mg/dL (8.4-10.2); Carbon Dioxide 23 mmol/L (22-29); Chloride 104 mmol/L (96-108); Creatinine Clr Calc Pharmacy 136.3; Estimated Glomerular Filt Rate > 60; Glucose Random 73 mg/dL (60-115); Magnesium 1.3 mg/dL (1.6-2.6); Potassium 2.6 mmol/l (3.3-5.1); Sodium 139 mmol/L (135-145); Total Protein 5.1 g/dL (6.5-8.0)
[2020-10-07 10:41] LABS: Hematocrit 35.3 % (42-52); Hemoglobin 11.8 g/dl (14.0-18.0); Mean Corpuscular HGB Conc 33.4 g/dl (31.0-36.0); Mean Corpuscular Hemoglobin 34.9 pg (27.0-33.0); Mean Corpuscular Volume 104.4 fL (80-98); Mean Platelet Volume 10.7 fL (9.4-12.4); Red Blood Count 3.38 X10*6/uL (4.60-5.80); Red Cell Distribution Width 13.7 % (11.0-16.0); White Blood Count 3.9 X10*3/uL (4.8-10.8)
[2020-10-07 10:54] LABS: Platelet Count 39 X10*3/uL (160-400)
--- NOTE | 2020-10-07 11:20 | P.PNIM_ITS ---
Subjective Subjective Date of Service: 10/07/20 Interval History: seen and examined this AM confusion improving know the year and hes in [place] baseline unclear unable to ROS Physical Exam Vital Signs: Vital Signs: Last Vital Signs Temp 98.6 F 10/07/20 07:53 Pulse 83 10/07/20 07:53 Resp 18 10/07/20 07:53 BP 153/86 H 10/07/20 07:53 Pulse Ox 100 10/07/20 07:53 Body Mass Index 22.7 Const: Other: General - no distress Cardiovascular - regular rate and rhythm, S1-S2 Lungs - normal respiratory effort, clear to auscultation bilaterally, no wheezing Abdomen - soft, nontender, no rebound or guarding Extremities - no edema bilaterally Neuro - non-focal, oriented to year and place Objective Data Current Medications Generic Name Dose Route Start Last Admin Trade Name Freq PRN Reason Stop Dose Admin Folic Acid 1 mg 10/07/20 09:00 10/07/20 09:36 Folic Acid 1 Mg Tablet PO 1 mg DAILY [facility] Administration Ceftriaxone Sodium 1 gm/ 50 mls @ 100 mls/hr 10/06/20 06:00 10/07/20 10:18 Sodium Chloride IV Infused Q24H [facility] Infusion Lactated Ringer's 1,000 mls @ 100 mls/hr 10/06/20 09:00 10/07/20 06:30 Lr IVCONT 100 mls/hr .Q10H [facility] Administration Potassium Chloride 10 meq in 100 mls @ 100 mls/hr 10/07/20 11:30 IV 10/07/20 13:29 Q1H [facility] Magnesium Sulfate 2 gm in 50 mls @ 25 mls/hr 10/07/20 11:17 IV 10/07/20 13:16 ONCE ONE Magnesium Oxide 800 mg 10/07/20 17:30 Magnesium Oxide 400 Mg Tablet PO BIDPC [facility] Medication 1 each 10/06/20 09:00 No Benzodiazepines MISCELLANE DAILY [facility] Phenobarbital 45 mg 10/06/20 21:00 10/07/20 09:36 Phenobarbital 15 Mg Tablet PO 10/08/20 09:01 45 mg BID [facility] Administration Protocol Phenobarbital 15 mg 10/08/20 21:00 Phenobarbital 15 Mg Tablet PO 10/10/20 09:01 BID [facility] Protocol Phenobarbital 15 mg 10/11/20 09:00 Phenobarbital 15 Mg Tablet PO 10/12/20 09:01 DAILY [facility] Protocol Potassium Chloride 40 meq 10/07/20 11:30 Potassium Chloride Packet 20 Meq Packet PO 10/07/20 21:01 BID [facility] Sodium Chloride 3 ml 10/06/20 08:00 10/07/20 10:17 0.9 % Sodium Chloride Flush 3 Ml Syringe IVFLUSH Not Given QSHIFT [facility] Thiamine HCl 100 mg 10/07/20 09:00 10/07/20 09:36 Thiamine Hcl 100 Mg Tablet PO 100 mg DAILY [facility] Administration Labs CBC & Chem 7: 10/07/20 07:56 10/07/20 07:56 Microbiology Microbiology Results: Microbiology 10/06/20 00:08 Blood - Venous Blood Culture - Preliminary No growth after 24 hours. 10/06/20 00:08 Blood - Venous Blood Culture - Preliminary No growth after 24 hours. Assessment and Plan (1) Rhabdomyolysis: Status: Acute Assessment and Plan: This is a 70 yo M with a PMH of alcohol abuse and dependence who is admitted for: 1. Acute Encephalopathy improving likely related to alcohol abuse and dependence 2. Alcohol abuse and dependence continue phenobarb per protocol monitor lytes 3. HypoMg/hypoK PO K 40mgx2 doses and IV 20meq x1 dose PO Mg increased to 800mg bidpc and IV Mag 2g x 1 4. Possible UTI continue rocephin 5. Rhabdo repeat CPK pending continue LR 6. Lactic Acidosis improved with IVF 7. Pulmonary nodule incidental finding outpatient f/u 8. Thrombocytopenia due to alcoholic liver disease monitor Full Code DVT pptx, mechanical due to significant thrombocytopenia
[2020-10-07] MEDS: Potassium Chloride Packet 20 MEQ PACKET 40 MEQ PO ×2 (11:58→20:35)
[2020-10-07] MEDS: Magnesium Sulfate/H2O 2 GM/50 ML PIGGYBACK IV (11:58)
[2020-10-07] MEDS: Potassium Chloride/H20 10 MEQ/100 ML PIGGYBACK 100 MEQ IV ×2 (14:02→15:09)
--- NOTE | 2020-10-07 14:13 | MHC.CM.PN ---
CASE MANAGEMENT MET WITH PATIENT IN HOPES OF OBTAINING CONTACT OR FAMILY INFORMATION, AND POSSIBLE HCP DOCUMENTATION. PATIENT REPORTS I REALLY DONT HAVE ANY WHEN ASKED HOW PATIENT GETS HIS FOOD, HE DOES NOT RECALL. CASE MANAGEMENT TO RE-ATTEMPT TOMORROW (10/08/2020)
--- NOTE | 2020-10-07 14:39 | MHC.CM.PN ---
PER REVIEW OF PREVIOUS RECORDS, PATIENT HAS A CONTACT NAME OF LUCY PADGETT @ [phone] MESSAGE LEFT ON VOICEMAIL REQUESTING CALL BACK AND CONTACT INFORMATION LEFT FOR THIS SINGLE END SEWER
--- NOTE | 2020-10-07 14:55 | MHC.CM.PN ---
CALL RECEIVED FROM LUCY PADGETT ([phone]) PATIENT LIVES ALONE. PATIENT HAS A FORMER SPOUSE IN [place], NINA TAYLOR, A BROTHER PARTHA PATINO, WHO ALSO LIVES IN [place], AND ANOTHER BROTHER JESSICA PATINO WHO LIVES IN [place]. PATIENT DOES HAVE A SON AND DAUGHTER, BUT DOES NOT KNOW WHERE THEY ARE CURRENTLY LOCATED. HIS PARENTS ARE . LUCY HAS NOT SEEN THE PATIENT IN APPROX. 8 YEARS; HOWEVER, SHE DOES SPEAK TO HIM ON THE PHONE OCCASIONALLY. CASE MANAGEMENT TO APPROACH PATIENT AT A MORE APPROPRIATE TIME TO INQUIRE ABOUT HCP COMPLETION.
[2020-10-07 15:23] VITALS: BP 153/87; PULSE 85; RESP 18; TEMP 36.2; O2SAT 100
[2020-10-07] MEDS: Magnesium Oxide 400 MG TABLET 800 MG PO (16:42)
[2020-10-07 19:21] VITALS: BP 141/86; PULSE 87; RESP 18; TEMP 36.7; O2SAT 100
[2020-10-08] VITALS: BP 140/87; PULSE 81; RESP 18; TEMP 36.9; O2SAT 97
[2020-10-08] MEDS: Lactated Ringers 1,000 ML 100 ML IVCONT (01:42)
[2020-10-08] MEDS: cefTRIAXone sodium 1 GM in 0.9 % Sodium Chloride 50 ML IV (05:11)
[2020-10-08 06:10] LABS: Hemoglobin 12.4 g/dl (14.0-18.0); PLT CLUMP 1
[2020-10-08 06:12] LABS: Hematocrit 36.1 % (42-52); Mean Corpuscular HGB Conc 34.3 g/dl (31.0-36.0); Mean Corpuscular Hemoglobin 35.7 pg (27.0-33.0); Mean Platelet Volume 12.3 fL (9.4-12.4); Red Blood Count 3.47 X10*6/uL (4.60-5.80); Red Cell Distribution Width 13.5 % (11.0-16.0); White Blood Count 3.9 X10*3/uL (4.8-10.8)
[2020-10-08 06:15] LABS: Platelet Count 47 X10*3/uL (160-400)
[2020-10-08 06:35] LABS: Anion Gap 13 (12-20); Blood Urea Nitrogen 4 mg/dL (9-16); Carbon Dioxide 24 mmol/L (22-29); Chloride 102 mmol/L (96-108); Creatinine Clr Calc Pharmacy 131.3; Estimated Glomerular Filt Rate > 60; Glucose Random 87 mg/dL (60-115); Potassium 3.3 mmol/l (3.3-5.1); Sodium 136 mmol/L (135-145)
[2020-10-08 06:41] LABS: Magnesium 1.4 mg/dL (1.6-2.6)
[2020-10-08 07:08] VITALS: BP 146/71; PULSE 85; RESP 18; TEMP 36.5; O2SAT 100
[2020-10-08] MEDS: 0.9 % Sodium Chloride Flush 3 ML SYRINGE IVFLUSH ×2 (07:11→21:37)
[2020-10-08] MEDS: Magnesium Sulfate/D5W 1 GM/100 ML PIGGYBACK IV (07:11)
[2020-10-08] MEDS: Thiamine HCL 100 MG TABLET PO (08:31)
[2020-10-08] MEDS: Folic Acid 1 MG TABLET PO (08:31)
[2020-10-08] MEDS: PHENobarbitaL 15 MG TABLET 45 MG PO (08:32)
[2020-10-08] MEDS: Magnesium Oxide 400 MG TABLET 800 MG PO ×2 (08:32→17:36)
[2020-10-08 11:46] VITALS: BP 146/71; PULSE 85; O2SAT 100
--- NOTE | 2020-10-08 12:33 | MHC.CM.PN ---
PATIENT ASSIGNED HIS FRIEND, SONALJocy DONOVAN ([phone]) HCP. DOCUMENT COPY IN CHART AND UPLOADED TO S[facility]. PATIENT AWARE OF ATTEMPTS TO SECURE A BED FOR STR.
--- NOTE | 2020-10-08 14:32 | PC.NURSE ---
PT ALERT OX3 , PT ABLE TO TAKE MEDS PO TODAY , PT ALSO ABLE TO FEED HIMSELF . PT CIWA SCALE IS 0
[2020-10-08] MEDS: Magnesium Sulfate/H2O 2 GM/50 ML PIGGYBACK IV (15:03)
[2020-10-08 15:15] VITALS: BP 119/67; PULSE 85; RESP 16; TEMP 37; O2SAT 100
[2020-10-08] MEDS: Gabapentin 400 MG CAPSULE 800 MG PO ×2 (15:16→21:37)
--- NOTE | 2020-10-08 15:44 | HO.PM.IMPN ---
Subjective Subjective Date of Service: 10/08/20 Interval History: seen and examined more and more lucid denies complaints no back pain Review of Systems General - no fevers or chills Cardiovascular - no chest pain Respiratory - no shortness of breath or cough Abdominal- no abdominal pain, nausea, vomiting, diarrhea Physical Exam Vital Signs: Vital Signs: Last Vital Signs Temp 98.6 F 10/08/20 15:15 Pulse 85 10/08/20 15:15 Resp 16 10/08/20 15:15 BP 119/67 10/08/20 15:15 Pulse Ox 100 10/08/20 15:15 Body Mass Index 22.7 Const: Other: General - no acute distress, appears comfortable Cardiovascular - regular rate and rhythm, S1-S2 Lungs - normal respiratory effort, clear to auscultation bilaterally, no wheezing Abdomen - soft, nontender, no rebound or guarding Extremities - no edema bilaterally Neuro - awake and alert, no focal deficits; b/l LE strenght 3-4/5 MSK - no spinal tenderness Objective Data Current Medications Generic Name Dose Route Start Last Admin Trade Name Lynn PRN Reason Stop Dose Admin Folic Acid 1 mg 10/07/20 09:00 10/08/20 08:31 Folic Acid 1 Mg Tablet PO 1 mg DAILY [facility] Administration Gabapentin 800 mg 10/08/20 15:00 10/08/20 15:16 Gabapentin 400 Mg Capsule PO 800 mg TID [facility] Administration Ceftriaxone Sodium 1 gm/ 50 mls @ 100 mls/hr 10/06/20 06:00 10/08/20 06:38 Sodium Chloride IV Infused Q24H [facility] Infusion Magnesium Sulfate 2 gm in 50 mls @ 25 mls/hr 10/08/20 14:26 10/08/20 15:03 IV 10/08/20 16:25 25 mls/hr ONCE ONE Administration Magnesium Oxide 800 mg 10/07/20 17:30 10/08/20 08:32 Magnesium Oxide 400 Mg Tablet PO 800 mg BIDPC [facility] Administration Medication 1 each 10/06/20 09:00 No Benzodiazepines MISCELLANE DAILY [facility] Phenobarbital 15 mg 10/08/20 21:00 Phenobarbital 15 Mg Tablet PO 10/10/20 09:01 BID [facility] Protocol Phenobarbital 15 mg 10/11/20 09:00 Phenobarbital 15 Mg Tablet PO 10/12/20 09:01 DAILY [facility] Protocol Sodium Chloride 3 ml 10/06/20 08:00 10/08/20 14:24 0.9 % Sodium Chloride Flush 3 Ml Syringe IVFLUSH Not Given QSHIFT [facility] Thiamine HCl 100 mg 10/07/20 09:00 10/08/20 08:31 Thiamine Hcl 100 Mg Tablet PO 100 mg DAILY [facility] Administration Trazodone HCl 100 mg 10/08/20 21:00 Trazodone Hcl 100 Mg Tablet PO BEDTIME [facility] Labs CBC & Chem 7: 10/08/20 05:50 10/08/20 05:50 Microbiology Microbiology Results: Microbiology 10/05/20 Unknown Urine Catheterized - Straight Catheter Urine Culture - Final Staphylococcus species 10/06/20 00:08 Blood - Venous Blood Culture - Preliminary No growth after 48 hours. 10/06/20 00:08 Blood - Venous Blood Culture - Preliminary No growth after 48 hours. Assessment and Plan (1) Rhabdomyolysis: Status: Acute (2) Alcohol withdrawal: Status: Acute Assessment and Plan: This is a 70 yo M with a PMH of alcohol abuse and dependence who is admitted for: 1. Acute Encephalopathy improving daily 2. Alcohol abuse and dependence continue phenobarb per protocol monitor lytes 3. HypoMg/hypoK continue po and iv repletement as needed 4. UTI ruled out cx negative, stop rocehin 5. Rhabdo resolved 6. Lactic Acidosis improved with IVF 7. Pulmonary nodule incidental finding outpatient f/u 8. Thrombocytopenia due to alcoholic liver disease monitor 9. Weakness PT evaluation Full Code DVT pptx, mechanical due to significant thrombocytopenia
[2020-10-08] MEDS: PHENobarbitaL 15 MG TABLET PO (21:37)
[2020-10-08] MEDS: traZODone HCL 100 MG TABLET PO (21:37)
[2020-10-08 23:45] VITALS: BP 156/75; PULSE 79; RESP 19; TEMP 36.8; O2SAT 96
[2020-10-09 07:04] LABS: Anion Gap 15 (12-20); Blood Urea Nitrogen 5 mg/dL (9-16); Calcium 7.2 mg/dL (8.4-10.2); Carbon Dioxide 22 mmol/L (22-29); Chloride 102 mmol/L (96-108); Creatinine Clr Calc Pharmacy 147.7; Estimated Glomerular Filt Rate > 60; Glucose Random 91 mg/dL (60-115); Magnesium 1.9 mg/dL (1.6-2.6); Sodium 136 mmol/L (135-145)
[2020-10-09 07:22] VITALS: BP 134/79; PULSE 89; RESP 18; TEMP 36.7; O2SAT 100
[2020-10-09] MEDS: 0.9 % Sodium Chloride Flush 3 ML SYRINGE IVFLUSH (08:01)
[2020-10-09] MEDS: Thiamine HCL 100 MG TABLET PO (08:01)
[2020-10-09] MEDS: Gabapentin 400 MG CAPSULE 800 MG PO ×2 (08:01→14:23)
[2020-10-09] MEDS: PHENobarbitaL 15 MG TABLET PO (08:01)
[2020-10-09] MEDS: Magnesium Oxide 400 MG TABLET 800 MG PO (08:01)
[2020-10-09] MEDS: Folic Acid 1 MG TABLET PO (08:01)
[2020-10-09 08:08] VITALS: BP 134/79; PULSE 89; O2SAT 100
[2020-10-09] MEDS: Potassium Chloride ER 20 MEQ TAB.ER.PRT 60 MEQ PO (09:12)
--- NOTE | 2020-10-09 09:52 | PM.DS ---
DS: Providers Provider Date of admission: 10/06/20 00:52 Primary care physician: Unknown Physician DS: Diagnosis Discharge Diagnosis (1) Alcohol withdrawal: Status: Acute (2) Rhabdomyolysis: Status: Acute (3) Acute UTI: Status: Acute Problem details: ruled out (4) Hypernatremia: Status: Acute DS: Medications Discharge Medications Home Medications: Home Medications Medication Instructions Recorded Confirmed clonidine 0.1 mg BID 10/08/20 10/08/20 gabapentin 800 mg PO TID 10/08/20 10/08/20 trazodone 100 mg PO BEDTIME 10/08/20 10/08/20 Previous Rx's Medication Instructions Recorded magnesium oxide 400 mg PO BIDPC #60 tab 10/09/20 potassium chloride 20 meq PO DAILY #30 tab 10/09/20 DS: Summary Hospital Course Hospital Course: Patient presented to the hospital after he was found on the floor by his neighbors. He was started on treatment for rhabdomyolysis with IV fluids, IV antibiotics for presumed urinary tract infection and phenobarbital for alcohol withdrawal. With fluids as rhabdomyolysis resolved. His urine cultures came back negative and so his antibiotics were discontinued. With the help of phenobarbital, patient's alcohol withdrawal was successfully treated. He had his electrolytes monitored and repleted as necessary. [facility] oral potassium and magnesium. He was seen by Physical therapy who recommended short-term rehab which the patient was agreeable to. He has been strongly encouraged complete alcohol cessation. Time Spent with Patient Time attestation: Total time spent providing and/or coordinating discharge services: Physical Exam Vital Signs: Vital Signs: Last Vital Signs Temp 98.0 F 10/09/20 07:22 Pulse 89 10/09/20 08:08 Resp 18 10/09/20 07:22 BP 134/79 10/09/20 08:08 Pulse Ox 100 10/09/20 08:08 Body Mass Index 22.7 Const: Other: General - no acute distress, appears comfortable Cardiovascular - regular rate and rhythm, S1-S2 Lungs - normal respiratory effort, clear to auscultation bilaterally, no wheezing Abdomen - soft, nontender, no rebound or guarding Extremities - no edema bilaterally Neuro - awake and alert, no focal deficits DS: Data Data Completed and Pending Labs on day of discharge: Laboratory Last Values WBC 3.9 X10*3/uL (4.8-10.8) L 10/08/20 05:50 RBC 3.47 X10*6/uL (4.60-5.80) L 10/08/20 05:50 Hgb 12.4 g/dl (14.0-18.0) L 10/08/20 05:50 Hct 36.1 % (42-52) L 10/08/20 05:50 MCV 104.0 fL (80-98) H 10/08/20 05:50 MCH 35.7 pg (27.0-33.0) H 10/08/20 05:50 MCHC 34.3 g/dl (31.0-36.0) 10/08/20 05:50 RDW 13.5 % (11.0-16.0) 10/08/20 05:50 Plt Count 47 X10*3/uL (160-400) L 10/08/20 05:50 MPV 12.3 fL (9.4-12.4) 10/08/20 05:50 Immature Gran % (Auto) 0.4 % (0.0-0.4) 10/06/20 06:02 Neut % (Auto) 56.7 % (45-73) 10/06/20 06:02 Lymph % (Auto) 31.9 % (20-40) 10/06/20 06:02 [place] % (Auto) 10.8 % (2-11) 10/06/20 06:02 Eos % (Auto) 0.0 % (0-4) 10/06/20 06:02 Baso % (Auto) 0.2 % (0-2) 10/06/20 06:02 Lymph # (Auto) 1.5 X10*3/uL (1.2-4.9) 10/06/20 06:02 [place] # (Auto) 0.5 X10*3/uL (0.1-1.2) 10/06/20 06:02 Eos # (Auto) 0.0 X10*3/uL (0.0-0.4) 10/06/20 06:02 Baso # (Auto) 0.0 X10*3/uL (0.0-0.2) 10/06/20 06:02 Abs Immat Gran (auto) 0.02 X10*3/uL (0.00-0.03) 10/06/20 06:02 Absolute Neuts (auto) 2.6 X10*3/uL (2.0-8.3) 10/06/20 06:02 Absolute Nucleated RBC 0.000 X10*3/uL (0.0-0.012) 10/08/20 05:50 Nucleated RBC % (auto) 0.0 /100WBC (0.0-0.2) 10/08/20 05:50 PT 13.0 SEC (10.8-13.0) 10/05/20 21:00 INR 1.1 (0.9-1.1) 10/05/20 21:00 APTT 29.6 SEC (24.1-38.0) 10/05/20 21:00 Sodium 136 mmol/L (135-145) 10/09/20 05:59 Potassium 3.0 mmol/l (3.3-5.1) L 10/09/20 05:59 Chloride 102 mmol/L (96-108) 10/09/20 05:59 Carbon Dioxide 22 mmol/L (22-29) 10/09/20 05:59 Anion Gap 15 (-20) 10/09/20 05:59 BUN 5 mg/dL (9-16) L 10/09/20 05:59 Creatinine 0.48 mg/dL (0.5-1.4) L 10/09/20 05:59 Estim Creat Clear Calc 147.7 10/09/20 05:59 Estimated GFR > 60 10/09/20 05:59 POC Glucose 123 mg/dL (60-115) H 10/05/20 20:23 POC Glucose 123 mg/dL (60-115) H 10/05/20 20:23 Random Glucose 91 mg/dL (60-115) 10/09/20 05:59 Lactic Acid 4.7 mmol/L (0.5-2.0) H* 10/06/20 00:08 Lactic Acid Fup @ 2Hr 2.2 mmol/L (0.5-2.0) H* 10/06/20 02:46 Lactic Acid Fup @ 4Hr 2.2 mmol/L (0.5-2.0) H* 10/06/20 06:02 Calcium 7.2 mg/dL (8.4-10.2) L 10/09/20 05:59 Magnesium 1.9 mg/dL (1.6-2.6) 10/09/20 05:59 Total Bilirubin 1.9 mg/dL (0.0-1.0) H 10/07/20 07:56 Direct Bilirubin 1.1 mg/dL (0.0-0.5) H 10/07/20 07:56 AST 128 U/L (5-37) H 10/07/20 07:56 ALT 35 U/L (0-40) 10/07/20 07:56 Alkaline Phosphatase 75 U/L (39-117) 10/07/20 07:56 Ammonia 40 umol/L (13-55) 10/06/20 09:54 Total Creatine Kinase 477 U/L (38-174) H D 10/08/20 05:50 Troponin I High Sens 10.8 ng/L (<3.5-35.0) 10/05/20 21:00 Total Protein 5.1 g/dL (6.5-8.0) L 10/07/20 07:56 Albumin 2.7 g/dL (3.5-5.0) L 10/07/20 07:56 Lipase 7 U/L (8-78) L 10/05/20 21:00 Urine Color DARK YELLOW 10/05/20 23:11 Urine Appearance HAZY 10/05/20 23:11 Urine pH 6.5 (5.0-8.0) 10/05/20 23:11 Ur Specific [place] 1.025 (1.005-1.025) 10/05/20 23:11 Urine Protein TRACE MG/DL (NEG-TRACE) 10/05/20 23:11 Urine Glucose (UA) 100 MG/DL (NEG) H 10/05/20 23:11 Urine Ketones 5 MG/DL (NEG) 10/05/20 23:11 Urine Blood 3+ (NEG) H 10/05/20 23:11 Urine Nitrite POS (NEG) H 10/05/20 23:11 Ur Leukocyte Esterase NEG (NEG) 10/05/20 23:11 Urine RBC 5-9 /HPF (0) H 10/05/20 23:11 Urine WBC 10-14 /HPF (0-4) H 10/05/20 23:11 Urine WBC Clumps NOTED 10/05/20 23:11 Ur Squamous Epith Cells TRACE /LPF 10/05/20 23:11 Urine Bacteria NONE /LPF 10/05/20 23:11 Hyaline Casts 1-4 /LPF 10/05/20 23:11 Urine Mucus 3+ /LPF 10/05/20 23:11 Urine Opiates Screen Not Detected (Not Detect) 10/06/20 Unknown Ur Barbiturates Screen Not Detected (Not Detect) 10/06/20 Unknown Ur Phencyclidine Scrn Not Detected (Not Detect) 10/06/20 Unknown Ur Amphetamines Screen Not Detected (Not Detect) 10/06/20 Unknown U Benzodiazepines Scrn POSITIVE (Not Detect) H 10/06/20 Unknown Urine Cocaine Screen Not Detected (Not Detect) 10/06/20 Unknown U Marijuana (THC) Screen POSITIVE (Not Detect) H 10/06/20 Unknown Ethyl Alcohol < 10 mg/dL 10/05/20 21:00 Coronavirus (PCR) NEGATIVE (Negative) 10/05/20 21:00 Influenza Type A (PCR) NEGATIVE (Negative) 10/05/20 21:00 Influenza Type B (PCR) NEGATIVE (Negative) 10/05/20 21:00 RSV RNA Qual (PCR) NEGATIVE (Negative) 10/05/20 21:00 Preliminary micro results at discharge 10/06/20 00:08 Blood Culture - Preliminary Blood - Venous No growth after 48 hours. 10/06/20 00:08 Blood Culture - Preliminary Blood - Venous No growth after 48 hours. Discharge Plan Discharge Patient Disposition: er SNF Referrals: Physician,Unknown [Primary Care Provider] - Discharge Medications: New magnesium oxide 400 mg (241.3 mg magnesium) Tablet 400 mg PO BIDPC Qty: 60 RF: 0 potassium chloride 20 mEq tablet extended release 20 meq PO DAILY Qty: 30 RF: 0 Continued gabapentin 800 mg PO TID RF: 0 trazodone 100 mg Tablet 100 mg PO BEDTIME RF: 0 clonidine 0.1 mg BID RF: 0 Discharge Orders: Discharge Order (Routine); Ordered 10/09/20 Ordered By: Vincenzo Mcintyre Diet: advance to usual diet Activity on Discharge: As tolerated Visit Report Forms: Patient Portal Discharge page Care Plan Goals: To stay healthy and out of the hospital. Health Concerns: Alcoholism Electrolytes abnormalities Weakness Plan of Treatment: Alcoholism - You have been treated for withdrawal and you will not have any symptoms of withdrawal as long you dont drink any further Electrolytes abnormalities - Take Magnesium and potassium Weakness - Work with physical therapy
[2020-10-09 10:50] LABS: COVID-19 Test Negative (Negative)
--- NOTE | 2020-10-09 13:51 | MHC.CM.PN ---
[facility] able to take pt today at 1600 hours for short term rehab. pt informed and transportation arranged via [facility]
[2020-10-09 15:31] VITALS: BP 131/76; PULSE 85; RESP 16; TEMP 36.9; O2SAT 99
--- NOTE | 2020-10-09 15:51 | MHC.INPTTRAN ---
Pt admitted with alcohol withdrawal. Phenobarb protocol completed, CIWA 0. Alert and oriented to self and place. Vague on time and situation. Pleasant with staff. Pt became very weak during hospitalization. Minimal work with PT, today he was able to do activities in bed. C/O bilateral foot pain, given scheduled gabapentin for pain. Covid negative. K+ 3.0, given 60mEQ K+ PO. Labs WNL, Vitals WNL.
--- NOTE | 2020-10-09 16:26 | MHC.CM.PN ---
CM informed BLS crew on scene to pick up attendant pt who was saying he did not want to go to STR. CM met with pt and BLS crew, pt reports he will go to STR but wants to go home after. CM explained again that STR is for multiple days but he would be able to go home after. pt undecided about STR but reported pain when trying to stand. CM asked pt if he felt he could care for himself at home and he admitted he could not. Pt agreed he needs at least a few days of rehab but probably more Pt given a size 10 pair of sneakers as he had only socks on. Pt will be transported to [place] for STR via [facility]
== END 2020-10-09 16:32 | disposition skilled nursing facility (03) | DRG 558 ==
LOC: HO.ED 10-06 00:31 → HO.S3 10-06 01:04
PROVIDERS: Admitting Provider Internal Medicine; Emergency Provider Internal Medicine; Visit Provider Family Medicine
DX: M62.82 Rhabdomyolysis (principal); N39.0 Urinary tract infection, site not specified; F10.230 Alcohol dependence with withdrawal, uncomplicated; E87.2 Acidosis; E87.0 Hyperosmolality and hypernatremia; D69.6 Thrombocytopenia, unspecified; R91.1 Solitary pulmonary nodule; K70.9 Alcoholic liver disease, unspecified; E83.42 Hypomagnesemia; E86.0 Dehydration; Z20.828 Contact with and (suspected) exposure to other viral communicable diseases; Z88.0 Allergy status to penicillin; Z79.899 Other long term (current) drug therapy
CPT/HCPCS: 0241U; 36415; 70450; 71045; 72125; 80048; 80076; 80307; 80320; 81001; 82140; 82550; 82947; 83605; 83690; 83735; 84484; 85025; 85027; 85610; 85730; 87040; 87086; 87635; 93005; 96361; 96365; 96367; 96372; 96375; 96376; 97110; 97162; 99285; J0696; J1200; J2060; J2560; J3411; J3475